=== PATIENT | female | born 1985 | race Caucasian/White ===

== ENCOUNTER 2016-12-04 12:31 | Emergency (ER) | payer OTHER | END 2016-12-04 14:05 | disposition home or self-care (01) | LOC: FER 12:31 | DX: S91.201A Unspecified open wound of right great toe with damage to nail, initial encounter (principal); J45.909 Unspecified asthma, uncomplicated; F17.210 Nicotine dependence, cigarettes, uncomplicated; Z88.2 Allergy status to sulfonamides; Z88.8 Allergy status to other drugs, medicaments and biological substances; Z79.899 Other long term (current) drug therapy; W22.8XXA Striking against or struck by other objects, initial encounter; Y92.009 Unspecified place in unspecified non-institutional (private) residence as the place of occurrence of the external cause | CPT/HCPCS: 73630; 99283 ==

== ENCOUNTER 2020-11-19 17:38 | Emergency (ER) | payer OTHER ==
[~2020-11-19 17:38] MED LIST: BENTYL10 MG PO; CIPRO500 M1 PO; IMODIUM2 MG PO; METRONIDAZOLE500 MG PO; MOTRIN600 MG PO; NAPROXEN500 MG PO; ONDANSETRON HCL4 MG PO; ONDANSETRON ODT4 MG SL; ZOFRAN8 MG PO
[2020-11-19] MEDS ORDERED: PERCOCET 5-3251 EACH PO (20:32)
[2020-11-19] MEDS ORDERED: IBUPROFEN800 MG PO (20:32)
[2020-11-19] MEDS ORDERED: CYCLOBENZAPRINE10 MG PO (20:32)
== END 2020-11-19 20:45 | disposition home or self-care (01) ==
LOC: FER 17:38
DX: M54.41 Lumbago with sciatica, right side (principal); F17.210 Nicotine dependence, cigarettes, uncomplicated; Z88.2 Allergy status to sulfonamides
CPT/HCPCS: 96372; 99283; J1040; J2270

== ENCOUNTER 2021-04-09 16:01 | Emergency (ER) | payer OTHER ==
[~2021-04-09 16:01] MED LIST changes: +CYCLOBENZAPRINE10 MG PO; +IBUPROFEN800 MG PO; +PERCOCET 5-3251 EACH PO
[2021-04-09 17:45] LABS: BASOPHIL 0.5 % (0-2); EOSINOPHIL 0.5 % (0-5); HCT 37.7 % (37.0-47.0); HGB 12.4 g/dl (12.5-16.0); LYMPHOCYTE 30.5 % (15-48); MCH 30.2 pg (25.0-31.0); MCHC 32.9 g/dL (32.0-36.0); MONOCYTE 6.9 % (0-12); MPV 12.7 fL (6.0-9.5); NEUTROPHIL 61.3 % (41-80); NRBC 0; PLT 168 K/uL (150-400); RDW 13.6 % (11.5-14.0); WBC 7.7 K/uL (4.0-10.5)
[2021-04-09 18:10] LABS: ALBUMIN 3.2 g/dL (3.4-5.0); BILIRUBIN - TOTAL 0.3 mg/dL (0.2-1.0); BUN/CREAT RATIO (CALC) 17.6 RATIO; CREATININE 0.51 mg/dL (0.51-0.95); MAGNESIUM 1.9 mg/dL (1.8-2.4); POTASSIUM 3.2 mmol/L (3.5-5.1); TOTAL PROTEIN 6.2 g/dL (6.4-8.2)
[2021-04-09 18:49] LABS: AMPHETAMINES POSITIVE (NEGATIVE); BARBITURATES NEGATIVE (NEGATIVE); ECSTASY (MDMA) NEGATIVE (NEGATIVE); MARIJUANA (THC) POSITIVE (NEGATIVE); METHADONE NEGATIVE (NEGATIVE); OPIATES POSITIVE (NEGATIVE); OXYCODONE NEGATIVE (NEGATIVE)
[2021-04-09 19:02] LABS: BILIRUBIN NEGATIVE (NEGATIVE); BLOOD NEGATIVE Ery/uL (NEGATIVE); CLARITY CLEAR (CLEAR); COLOR YELLOW (YELLOW); GLUCOSE (U) NORMAL (NORMAL); LEUKOCYTES TRACE Leu/uL (NEGATIVE); NITRITE POSITIVE (NEGATIVE); PROTEIN NEGATIVE (NEGATIVE); SPECIFIC GRAVITY 1.015 (1.001-1.030); UROBILINOGEN 0.2 mg/dL (0.2-1.0); pH 6.5 (5.0-9.0)
[2021-04-09 19:13] LABS: BACTERIA 4+
[2021-04-09 19:19] LABS: AMORPHOUS URATES CRYSTALS TRACE; URINARY RBC RARE
== END 2021-04-09 19:25 | disposition home or self-care (01) ==
LOC: FER 16:01
PROVIDERS: Emergency Medicine
DX: F15.10 Other stimulant abuse, uncomplicated (principal); F12.10 Cannabis abuse, uncomplicated; F13.10 Sedative, hypnotic or anxiolytic abuse, uncomplicated; R55 Syncope and collapse; Z88.2 Allergy status to sulfonamides
CPT/HCPCS: 36415; 70450; 71045; 80053; 80305; 81001; 83735; 84484; 85025; 85379; 87076; 87077; 87088; 87186; 93005; J7030